=== PATIENT | female | born 2000 | race Caucasian/White ===

== ENCOUNTER 2019-09-17 13:13 | Emergency (ER) | payer SELFPAY ==
[~2019-09-17] VITALS: Ht 160 cm; Wt 104.5 kg
[2019-09-17 13:16] VITALS: BP 146/86
--- NOTE | 2019-09-17 14:35 | NUR ---
CULINARY ASSISTANT: PT AMBULATORY WITH STEADY GAIT TO ROOM FROM LOBBY AT THIS TIME. CHAIM
--- NOTE | 2019-09-17 14:56 | NUR ---
PT HAS CO OF RIGHT FACIAL SPASMS. PT STATES IT FELT LIKE ME FACE SEIZED UP FOR 5 MINUTES. PT FACE IS SYMETRICAL. SPEECH CLEAR. NO N/T. NO TWITCHING OR SPASMS NOTED
[2019-09-17 15:40] LABS: ANION GAP 5 mmol/L (5-15); CALCIUM 8.9 mg/dL (8.5-10.1); CHLORIDE 110 mmol/L (98-107); CREATININE 0.99 mg/dL (0.55-1.02)
--- NOTE | 2019-09-17 16:07 | NUR ---
Patient/Caregiver given discharge instructions and they have confirmed that they understand the instructions. Patient ambulatory with steady gait.
== END 2019-09-17 16:11 | disposition home or self-care (01) ==
LOC: ED 15:50
DX: M62.838 Other muscle spasm (principal)
CPT/HCPCS: 36415; 80048; 83735; 99283